=== PATIENT | female | born 1990 | race African-American/Black ===

== ENCOUNTER 2025-04-05 06:27 | Emergency (ER) | payer MEDICAID ==
[~2025-04-05] VITALS: Ht 160 cm; Wt 61.2 kg
[2025-04-05 06:36] VITALS: O2SAT 100
[2025-04-05] MEDS ORDERED: TOPUD PO (07:04)
[2025-04-05] MEDS ORDERED: AMOX1TAB15 MT (07:05)
[2025-04-05] MEDS ORDERED: ACETAMINOPHEN 500MG TABLET PO ONE (07:15)
[2025-04-05 07:19] VITALS: TEMP 36.8; O2SAT 100
[2025-04-05 07:20] VITALS: BP 126/62; PULSE 73; RESP 18
[2025-04-05] MEDS: IBUPROFEN 600MG TABLET PO ONE (07:20)
== END 2025-04-05 07:23 | disposition home or self-care (01) ==
LOC: ER 06:27
DX: K08.89 Other specified disorders of teeth and supporting structures (principal); Z98.890 Other specified postprocedural states
CPT/HCPCS: 81025; 99283